=== PATIENT | female | born 1945 | race Hispanic/Latino ===

== ENCOUNTER 2021-09-27 09:13 | Outpatient (CLI) | payer MEDICARE ==
[2021-09-27 20:49] LABS: SARS-CoV-2 PCR by NAA Not Detected (NotDetected)
== END 2021-09-27 09:14 | disposition home or self-care (01) ==
LOC: CSHLAB 09:13
PROVIDERS: ATTEND Internal Medicine Hematology & Oncology
DX: Z20.822 Contact with and (suspected) exposure to COVID-19 (principal); D61.818 Other pancytopenia
CPT/HCPCS: U0003; U0005

== ENCOUNTER 2021-10-02 08:24 | Day surgery (SDC) | payer MEDICARE ==
[2021-10-02 09:20] VITALS: BP 150/70; TEMP 97.6
[2021-10-02] MEDS ORDERED: Fentanyl 100 MCG/2 ML VIAL ONE (09:36)
[2021-10-02] MEDS ORDERED: Naloxone HCl 0.4 mg/ml Vial ONE (09:37)
[2021-10-02] MEDS ORDERED: Sodium Bicarbonate 2.5 MEQ/5 ML VIAL ONE (09:38)
[2021-10-02] MEDS ORDERED: Lidocaine 1% PF 5 ML VIAL ONE (09:38)
[2021-10-02] MEDS ORDERED: Midazolam HCl 2 mg/2 ml Vial ONE (09:41)
== END 2021-10-02 11:38 | disposition home or self-care (01) ==
LOC: CSHCT 08:24
PROVIDERS: ATTEND Internal Medicine Hematology & Oncology
DX: D61.818 Other pancytopenia (principal); D64.9 Anemia, unspecified
CPT/HCPCS: 20225; 88184; 88237; 88264; 88280; 99152; J2250; J2310; J3010

== ENCOUNTER 2022-07-05 11:53 | Outpatient (CLI) | payer MEDICARE, OTHER | END 2022-07-05 11:54 | disposition home or self-care (01) | LOC: CSHMAMMO 11:53 | PROVIDERS: ATTEND Family Medicine | DX: Z12.31 Encounter for screening mammogram for malignant neoplasm of breast (principal) | CPT/HCPCS: 77063; 77067 ==